=== PATIENT | female | born 1990 | race Caucasian/White ===

== ENCOUNTER 2020-09-11 21:19 | Emergency (ER) | payer OTHER ==
[~2020-09-11] VITALS: Ht 162.6 cm; Wt 81.7 kg
[~2020-09-11 21:19] MED LIST: ACETAMINOPHEN325 M1 OR; APAP500 OR; BACTRIM DS TAB1 EACH PO; FLAGYL500 MG PO; IBUPROFEN 400400 M1 OR; IBUPROFEN 800800 M1 OR; NAPROSYN500 MG PO; NOHOMEMEDICATIONS; PHENERGAN 25 MG25 MG PO; TUCKS MEDICATE1 EAC1
[2020-09-11 22:37] LABS: ABSOLUTE NEUTROPHILS 3.7 thou/uL (1.4-8.2); BASOPHILS 1.1 % (0.0-2.0); HEMATOCRIT 41.5 % (37.0-47.0); HEMOGLOBIN 13.5 gm/dL (12.0-15.0); LYMPHOCYTES 24.5 % (24.0-44.0); MCH 28.6 pg (26.0-34.0); MCHC 32.5 g/dL (28.0-37.0); MONOCYTES 9.4 % (1.0-8.0); PLATELET COUNT 334 thou/uL (150-400); RBC 4.72 mil/uL (4.20-5.00); RDW 12.9 % (10.5-14.5)
[2020-09-11 22:43] LABS: ANION GAP 11 mmol/L (7-16); BUN 14 mg/dL (7-18); CHLORIDE 101 mmol/L (98-107); CO2 26 mmol/L (21-32); GLUCOSE 93 mg/dL (74-106); POTASSIUM 3.7 mmol/L (3.5-5.1); SODIUM 138 mmol/L (136-145)
[2020-09-11 22:51] LABS: TROPONIN-I <0.06 ng/mL (<0.06)
[2020-09-11 23:22] VITALS: BP 132/76
--- NOTE | 2020-09-13 07:43 | EKG ---
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
== END 2020-09-11 23:18 | disposition home or self-care (01) ==
LOC: ER 21:19
PROVIDERS: Emergency Medicine
DX: J06.9 Acute upper respiratory infection, unspecified (principal); Z20.828 Contact with and (suspected) exposure to other viral communicable diseases

== ENCOUNTER 2020-10-08 18:06 | Emergency (ER) | payer OTHER ==
[~2020-10-08] VITALS: Ht 165.1 cm; Wt 77.1 kg
[2020-10-08 18:28] VITALS: BP 137/90
[2020-10-08] MEDS ORDERED: NAPROSYN500 MG PO (18:46)
[2020-10-08] MEDS ORDERED: HYDROCODON-ACE1 EAC5 PO (18:46)
[2020-10-08] MEDS ORDERED: MOMETASONE FURO45 G1 TOP (18:46)
[2020-10-08] MEDS ORDERED: KEFLEX500 M1 PO (18:46)
== END 2020-10-08 19:24 | disposition home or self-care (01) ==
LOC: ER 18:06
DX: L30.9 Dermatitis, unspecified (principal); L03.114 Cellulitis of left upper limb; F17.210 Nicotine dependence, cigarettes, uncomplicated; J45.909 Unspecified asthma, uncomplicated